=== PATIENT | male | born 1970 | race Hispanic/Latino ===

== ENCOUNTER → 2024-06-05 | Outpatient (CLI) | payer BC ==
--- NOTE | 2024-06-05 09:32 | HMCIMG ---
Exam: CERVICAL SPINE 2 VIEWS REASON: CERVICALGIA TECHNIQUE: 3 views were obtained. FINDINGS: There are normal appearing vertebral bodies. Interspace heights are well preserved. There are no visible fractures. Soft tissues appear unremarkable. IMPRESSION: 1. Normal views of the cervical spine.
== END | disposition home or self-care (01) ==
LOC: RAH 08:24
DX: M54.2 Cervicalgia (principal)
CPT/HCPCS: 72040